=== PATIENT | female | born 1985 | race Caucasian/White ===

== ENCOUNTER 2016-07-01 17:06 | Emergency (ER) | payer BC ==
[2016-07-01 17:10] VITALS: TEMP 98.8; BMI 39.5
[2016-07-01] MEDS ORDERED: SODIUM CHLORIDE 1,000 ML IV STA (17:34)
[2016-07-01] MEDS ORDERED: METOCLOPRAMIDE HCL INJECTION 10 MG/2 ML VIAL IVPB ONE (17:34)
[2016-07-01] MEDS ORDERED: KETOROLAC TROMETHAMINE 30 MG/1 ML VIAL IVPUSH ONE (17:34)
[2016-07-01] MEDS ORDERED: METOCLOPRAMIDE HCL INJECTION 10 MG/2 ML VIAL ONE (17:51)
[2016-07-01] MEDS ORDERED: KETOROLAC TROMETHAMINE 30 MG/1 ML VIAL ONE (17:51)
[2016-07-01 18:02] LABS: BASOPHIL 0.6 % (0-2.0); EOSINOPHIL 1.6 % (0-4.5); MCH 28.9 pg (25.7-33.7); MCHC 33.4 g/dl (32.0-36.0); MEAN CELL VOLUME 86.5 fl (80-96); MEAN PLT VOLUME 8.7 fl (7.5-11.1); NEUTROPHILS 62.7 % (42.8-82.8); PLATELET COUNT 383 K/MM3 (134-434); RDW 13.7 % (11.6-15.6); WHITE BLOOD COUNT 8.9 K/mm3 (4.0-10.0)
--- NOTE | 2016-07-01 18:22 | PDOC ---
[id number] 4d MIGRAINE HEADACHE Time Seen by Provider: 07/01/16 17:33 History Source: Patient Exam Limitations: No Limitations - History of Present Illness Initial Comments: 07/01/16 18:17 30-year-old female presents to the ED with complaints of 3 day right temporal right retro-orbital pressure that has been unrelieved with her migraine medications including Topamax and fioricet. The patient states has been having migraines since [employer] and has been followed by Dr. Dowd for over 15 years. Patient states had to go to another hospital in March of last year secondary to the same but did resolve after receiving IV medication and was sent home with yobanyanju. Patient has no complaints of fever, visual changes, neck stiffness, vomiting, or abdominal pain. Patient denies recent travel, recent stressors, recent change in diet. Timing/Duration: reports: constant Severity: Yes: moderate Associated Symptoms: reports: other Past History - Past Medical History Allergies/Adverse Reactions: Allergies Allergy/AdvReac Type Severity Reaction Status Date / Time amoxicillin trihydrate Allergy DIARRHEA, Verified 07/01/16 17:07 [From Augmentin] VOMITING, HIVES potassium clavulanate Allergy DIARRHEA, Verified 07/01/16 17:07 [From Augmentin] VOMITING, HIVES shellfish derived Allergy FACIAL Verified 07/01/16 17:07 SWELLING Home Medications: Ambulatory Orders Levothyroxine [Synthroid -] 75 mcg PO DAILY 08/19/13 Topiramate [Topamax] 50 mg PO BID 03/09/15 Acetaminophen/Caffeine/Butalb [Fioricet -] 1 tab PO Q4H 07/01/16 Kidney Stones: Yes Thyroid Disease: Yes (HYPO.) Other medical history: migraines - Reproductive History Is Patient Now?: No - Psycho/Social/Smoking Cessation Hx Anxiety: No Suicidal Ideation: No Smoking Status: No Smoking History: Never smoked Have you smoked in the past 12 months: No Number of Cigarettes Smoked Daily: 0 Information on smoking cessation initiated: No Hx Alcohol Use: No Drug/Substance Use Hx: No Substance Use Type: Alcohol Patient Lives Alone: No Lives with/in: spouse/SO Neuro Specific PMHX - Complaint Specific PMHX Migraine: Yes Review of Systems - Review of Systems Able to Perform ROS?: Yes Constitutional: No: Symptoms Reported HEENTM: No: Symptoms Reported Respiratory: No: Symptoms reported Cardiac (ROS): No: Symptoms Reported ABD/GI: Yes: Nausea Musculoskeletal: No: Symptoms Reported Integumentary: No: Symptoms Reported Neurological: Yes: Headache. No: Numbness, Weakness, Dizziness Endocrine: No: Symptoms Reported Hematologic/Lymphatic: No: Symptoms Reported *Physical Exam - Vital Signs Last Vital Signs Temp Pulse Resp BP Pulse Ox 98.8 F 81 18 113/78 100 07/01/16 17:07 07/01/16 17:07 07/01/16 17:07 07/01/16 17:07 07/01/16 17:07 - Physical Exam General Appearance: Yes: Nourished, Appropriately Dressed. No: Apparent Distress HEENT: positive: EOMI, LAURY, TMs Normal, Pharynx Normal. negative: Pale Conjunctivae Neck: positive: Normal Thyroid, Supple. negative: Tender, Decreased range of motion Respiratory/Chest: positive: Lungs Clear, Normal Breath Sounds. negative: Respiratory Distress, Accessory Muscle Use Cardiovascular: positive: Regular Rhythm, Regular Rate. negative: Murmur Integumentary: positive: Normal Color, Warm, Moist Neurologic: positive: Motor Strength 5/5 (ambulatory) ED Treatment Course - LABORATORY CBC & Chemistry Diagram: 07/01/16 17:38 07/01/16 17:55 - Medications Given in the ED: ED Medications Discontinued Medications Generic Name Dose Route Start Last Admin Trade Name Freq PRN Reason Stop Dose Admin Ketorolac Tromethamine 30 mg 07/01/16 17:34 07/01/16 17:58 Toradol Injection - IVPUSH 07/01/16 17:35 30 mg ONCE ONE Administration Metoclopramide HCl 10 mg 07/01/16 17:34 07/01/16 17:58 Reglan Injection - IVPB 07/01/16 17:35 10 mg ONCE ONE Administration Medical Decision Making - Medical Decision Making 07/01/16 18:24 Patient with acute migraine episode for the past 3 days unrelieved with her chronic migraine medication. Patient denies different presentation, severity, or duration. Patient had no neural focal deficits with no acute findings. Patient ordered for IV fluids, labs, urine urine , Reglan, Benadryl, and Toradol. *DC/Admit/Observation/Transfer Diagnosis at time of Disposition: Migraine headache - Discharge Dispostion Disposition: HOME Condition at time of disposition: Stable - Referrals Referrals: Maya Kay [Primary Care Provider] - - Patient Instructions Printed Discharge Instructions: DI for Migraine Additional Instructions: Your Discharge Instructions: You must call primary care physician within 24 hours to arrange follow-up. Return to the Emergency Department with any new, persistent or worsening symptoms, for fever, chills, SOB, dizziness or any other concerning changes that may occur.
[2016-07-01 18:45] LABS: ALK PHOS 99 U/L (45-117); ANION GAP 9 (8-16); BILIRUBIN,TOTAL 0.3 mg/dL (0.2-1.0); CALCIUM 8.7 mg/dL (8.5-10.1); CO2 25 mmol/L (21-32); CREATININE 0.8 mg/dL (0.55-1.02); GLUCOSE,RANDOM 101 mg/dL (74-106); SGOT/AST 19 U/L (15-37); SGPT/ALT 44 U/L (12-78); TOT PROT 7.7 g/dl (6.4-8.2)
[2016-07-01 18:55] LABS: URINE APPEARANCE CLOUDY; URINE BILIRUBIN NEGATIVE (NEGATIVE); URINE BLOOD NEGATIVE (NEGATIVE); URINE COLOR YELLOW; URINE GLUCOSE (UA) NEGATIVE (NEGATIVE); URINE KETONE NEGATIVE (NEGATIVE); URINE LEUK ESTERASE NEGATIVE (NEGATIVE); URINE NITRITE NEGATIVE (NEGATIVE); URINE PROTEIN NEGATIVE (NEGATIVE); URINE UROBILINOGEN NEGATIVE E.U./dl (0.2-1.0)
--- NOTE | 2016-07-01 19:33 | PDOC ---
[id number] 100 07/01/16 17:07 07/01/16 17:07 07/01/16 17:07 07/01/16 17:07 07/01/16 17:07 <Anais Ponce - Last Filed: 07/01/16 20:28> - Vital Signs Last Vital Signs Temp Pulse Resp BP Pulse Ox 98.8 F 73 20 110/52 97 07/01/16 17:07 07/01/16 20:36 07/01/16 20:36 07/01/16 20:36 07/01/16 20:36 <ThierryBruno vanessa - Last Filed: 07/02/16 09:03> ED Treatment Course - LABORATORY CBC & Chemistry Diagram: 07/01/16 17:38 07/01/16 17:55 - ADDITIONAL ORDERS Additional order review: Laboratory Results 07/01/16 17:38 Urine Color Yellow Urine Appearance Cloudy Urine pH 7.0 Ur Specific [place] 1.019 Urine Protein Negative Urine Glucose (UA) Negative Urine Ketones Negative Urine Blood Negative Urine Nitrite Negative Urine Bilirubin Negative Urine Urobilinogen Negative Ur Leukocyte Esterase Negative Urine HCG, Qual Negative 07/01/16 17:38 RBC 5.03 MCV 86.5 MCHC 33.4 RDW 13.7 MPV 8.7 Neutrophils % 62.7 Lymphocytes % 28.0 Monocytes % 7.1 Eosinophils % 1.6 Basophils % 0.6 - Medications Given in the ED: ED Medications Discontinued Medications Generic Name Dose Route Start Last Admin Trade Name Jose PRN Reason Stop Dose Admin Diphenhydramine HCl 50 mg 07/01/16 18:23 07/01/16 18:33 Benadryl Injection - IVPB 07/01/16 18:24 50 mg ONCE ONE Administration Sodium Chloride 1,000 mls @ 1,000 mls/hr 07/01/16 17:34 07/01/16 17:58 Normal Saline - IV 07/01/16 18:33 1,000 mls/hr ASDIR STA Administration Ketorolac Tromethamine 30 mg 07/01/16 17:34 07/01/16 17:58 Toradol Injection - IVPUSH 07/01/16 17:35 30 mg ONCE ONE Administration Metoclopramide HCl 10 mg 07/01/16 17:34 07/01/16 17:58 Reglan Injection - IVPB 07/01/16 17:35 10 mg ONCE ONE Administration <RosarioAnais - Last Filed: 07/01/16 20:28> - LABORATORY CBC & Chemistry Diagram: 07/01/16 17:38 07/01/16 17:55 - ADDITIONAL ORDERS Additional order review: 07/01/16 17:38 RBC 5.03 MCV 86.5 MCHC 33.4 RDW 13.7 MPV 8.7 Neutrophils % 62.7 Lymphocytes % 28.0 Monocytes % 7.1 Eosinophils % 1.6 Basophils % 0.6 - Medications Given in the ED: ED Medications Discontinued Medications Generic Name Dose Route Start Last Admin Trade Name Freq PRN Reason Stop Dose Admin Diphenhydramine HCl 50 mg 07/01/16 18:23 07/01/16 18:33 Benadryl Injection - IVPB 07/01/16 18:24 50 mg ONCE ONE Administration Sodium Chloride 1,000 mls @ 1,000 mls/hr 07/01/16 17:34 07/01/16 17:58 Normal Saline - IV 07/01/16 18:33 1,000 mls/hr ASDIR STA Administration Ketorolac Tromethamine 30 mg 07/01/16 17:34 07/01/16 17:58 Toradol Injection - IVPUSH 07/01/16 17:35 30 mg ONCE ONE Administration Metoclopramide HCl 10 mg 07/01/16 17:34 07/01/16 17:58 Reglan Injection - IVPB 07/01/16 17:35 10 mg ONCE ONE Administration <Bruno Guadarrama - Last Filed: 07/02/16 09:03> Medical Decision Making - Medical Decision Making 07/01/16 19:28 Patient was endorsed to me by EVON Barr pending labs and disposition. 07/01/16 19:33 There are no acute findings on the CBC and the UA, chemistry pending 07/01/16 20:15 Patient is feeling better now rates the pain at 1/10. There are no neurological deficits. Chemistries normal I discussed the physical exam findings, ancillary test results and final diagnoses with the patient. I answered all of the patient's questions. The patient was satisfied with the care received and felt comfortable with the discharge plan and treatment plan. The Patient agrees to follow up with the primary care physician within 24-72 hours. <Anais Ponce - Last Filed: 07/01/16 20:28> - Medical Decision Making 07/02/16 09:02 The patient was seen and evaluated in conjunction with SYED Beavers and EVON Kern under my direct supervision, ancillary studies were reviewed. I agree with the plan as outlined by SYED Beavers and EVON Kern. <Bruno Guadarrama - Last Filed: 07/02/16 09:03> *DC/Admit/Observation/Transfer <Anais Ponce - Last Filed: 07/01/16 20:28> <Bruno Guadarrama - Last Filed: 07/02/16 09:03> Diagnosis at time of Disposition: Migraine headache - Discharge Dispostion Disposition: HOME Condition at time of disposition: Stable - Referrals Referrals: Maya Kay [Primary Care Provider] - - Patient Instructions Printed Discharge Instructions: DI for Migraine Additional Instructions: Your Discharge Instructions: You must call primary care physician within 24 hours to arrange follow-up. Return to the Emergency Department with any new, persistent or worsening symptoms, for fever, chills, SOB, dizziness or any other concerning changes that may occur.
[2016-07-01 20:37] VITALS: BP 110/52; PULSE 73
== END 2016-07-01 20:40 | disposition home or self-care (01) ==
LOC: JER 17:06
PROC: 3E033GC Introduction of Other Therapeutic Substance into Peripheral Vein, Percutaneous Approach (ICD-10-PCS; principal; 2016-07-01)
PROC: 3E0333Z Introduction of Anti-inflammatory into Peripheral Vein, Percutaneous Approach (ICD-10-PCS; 2016-07-01)
PROC: 3E0337Z Introduction of Electrolytic and Water Balance Substance into Peripheral Vein, Percutaneous Approach (ICD-10-PCS; 2016-07-01)
DX: G43.909 Migraine, unspecified, not intractable, without status migrainosus (principal); E03.9 Hypothyroidism, unspecified
CPT/HCPCS: 36415; 80053; 81003; 84703; 85025; 99283-25

== ENCOUNTER 2016-12-08 05:38 | Day surgery (SDC) | payer BC ==
[2016-12-05 09:27] VITALS: BMI 38.9
[2016-12-08] MEDS ORDERED: PROPOFOL 20 ML ONE ×8 (07:32→08:49)
[2016-12-08] MEDS ORDERED: ePHEDrine SULFATE 50 MG/1 ML AMPULE ONE (07:32)
[2016-12-08] MEDS ORDERED: MIDAZOLAM HCL 2 MG/2 ML SINGLE DOSE VIAL ONE (07:32)
[2016-12-08] MEDS ORDERED: SUCCINYLCHOLINE CHLORIDE 200 MG/10 ML VIAL ONE ×2 (07:32→08:49)
[2016-12-08] MEDS ORDERED: IBUPROFEN 800 MG/8 ML IJ IVPB PRN (08:14)
[2016-12-08] MEDS ORDERED: ACETAMINOPHEN 325 MG TABLET (FP) PO PRN (08:14)
--- NOTE | 2016-12-08 08:14 | HP ---
History & Physical Update - History History: No Change - Physical Physical: No Change - Assessment Assessment: No Change - Plan Plan: No Change (cervical dysplasia - for LEEP cone biopsy)
[2016-12-08] MEDS ORDERED: LACTATED RINGERS SOLUTION 1,000 ML IV SCH (08:15)
[2016-12-08] MEDS ORDERED: DESFLURANE GAS 240 ML BOTTLE IH ONE (08:32)
--- NOTE | 2016-12-08 09:30 | OP ---
Operative Note - Note: Operative Date: 12/08/16 Pre-Operative Diagnosis: cervical dysplasia Operation: LEEP cone biopsy Findings: normal female anatomy Post-Operative Diagnosis: Same as Pre-op Surgeon: Dalila Rogers Anesthesiologist/SENIOR NATIONAL ACCOUNT MANAGER: Elvin Bajwa Anesthesia: General Specimens Removed: cervical biopsy Estimated Blood Loss (mls): 5 Operative Report Dictated: Yes
[2016-12-08] MEDS ORDERED: ONDANSETRON 4 MG/2 ML VIAL IVPUSH PRN (09:35)
[2016-12-08] MEDS ORDERED: oxyCODONE HCL 5 MG TABLET PO PRN ×2 (09:35)
[2016-12-08 10:12] VITALS: TEMP 97.9
[2016-12-08] MEDS ORDERED: oxyCODONE HCL 5 MG TABLET PO ONE (11:05)
[2016-12-08] MEDS ORDERED: oxyCODONE HCL 5 MG TABLET ONE (11:07)
[2016-12-08 11:20] VITALS: BP 124/70; PULSE 91
--- NOTE | 2016-12-09 12:56 | PATH ---
Surgical Pathology Report Patient Name: MICHAEL GAMING [facility]. Rec. #: [id number] /Age/Gender: 1985 (Age: 31) / F Account: [id number] Location: [facility] Taken: 12/08/2016 Received: 12/08/2016 Reported: 12/09/2016 Physicians: Dalila Rogers M.D. Specimen(s) Received CERVICAL CONE BIOPSY Clinical History Cervical dysplasia Final Diagnosis CERVIX, LEEP CONE BIOPSY: CERVICAL SQUAMOUS AND ENDOCERVICAL MUCOSA WITH DETACHED FRAGMENTS OF SQUAMOUS EPITHELIUM WITH LOW GRADE SQUAMOUS INTRAEPITHELIAL LESION (CERVICAL INTRAEPITHELIAL NEOPLASIA 1/SAVANNAH 1) WITH CAUTERY ARTIFACT. SURGICAL RESECTION MARGINS: ATYPIA NEGATIVE FOR DYSPLASIA; HOWEVER, EVALUATION IS LIMITED DUE TO DETACHMENT OF DYSPLASTIC EPITHELIUM. TRANSFORMATION ZONE: FOCALLY IDENTIFIED. Electronically Signed Curry Erwin M.D. Gross Description Received in formalin labeled "cervical biopsy" are 4 robbins-pink, irregular, unoriented portions of soft tissue ranging from 1.2 x 0.8 x 0.4 cm to 2.5 x 1.2 x 0.4 cm. Some of the portions are partially surfaced by a robbins-pink mucosa. The specimens are inked blue, serially sectioned and entirely submitted in 4 cassettes. /12/08/201612/08/2016
--- NOTE | 2016-12-10 09:47 | OP ---
DATE OF OPERATION: 12/08/2016 PREOPERATIVE DIAGNOSIS: Persistent cervical dysplasia. POSTOPERATIVE DIAGNOSIS: Persistent cervical dysplasia. PROCEDURE: Loop electrosurgical excision procedure (LEEP) cone biopsy. SURGEON: Dalila Wright DO CHILDCARE ADMINISTRATOR: None. ANESTHESIA: General by Elvin Bajwa MD and maintained by Darinel Chamorro CRNA. SPECIMEN REMOVED: Included cervical biopsy. COMPLICATIONS: None. ESTIMATED BLOOD LOSS: 5 mL DISPOSITION: Stable to PACU. COUNTS: Sponge, needle, and instrument count reported to be correct. BRIEF HISTORY AND DESCRIPTION OF PROCEDURE: Patient is a 31-year-old female who had been seen in the office with an abnormal Pap smear and had several colposcopic biopsies which showed cervical dysplasia. The patient was counseled on her options, and she agreed to undergo a LEEP cone biopsy procedure. Consents were signed in the office. The patient was then admitted to [facility] on December 08, 2016. Consents were reconfirmed. The patient was taken back to the operating room. She was given general anesthesia by Dr. Bajwa. Next, a speculum was placed inside the vagina, and the cervix was easily visualized. Using a large LEEP loop, a cone biopsy was removed in several passes in an anterior-posterior fashion. The specimen was sent to Pathology for permanent evaluation. The surgical bed was cauterized with the roller ball cautery. Excellent hemostasis was achieved. All the instruments were removed from the vagina. The patient was awoken from anesthesia, recovering in stable condition in the PACU after the procedure. DALILA WRIGHT DO /[id number]
== END 2016-12-08 11:46 | disposition home or self-care (01) ==
LOC: JASU-SURG 05:38
PROVIDERS: ATTEND Obstetrics & Gynecology
PROC: 0UBC7ZX Excision of Cervix, Via Natural or Artificial Opening, Diagnostic (ICD-10-PCS; principal; 2016-12-08 08:00)
DX: N87.0 Mild cervical dysplasia (principal)
CPT/HCPCS: 88307-TC; 94760

== ENCOUNTER 2021-01-27 13:06 | Emergency (ER) | payer BC ==
[2021-01-27 13:14] VITALS: TEMP 99.2; BMI 40.3
[2021-01-27 13:50] LABS: BASO % 0.3 % (0-2.0); EOS % 0.5 % (0-4.5); HEMATOCRIT 44.4 % (32.4-45.2); HEMOGLOBIN 15.4 GM/dL (10.7-15.3); MCH 31.1 pg (25.7-33.7); MCHC 34.7 g/dl (32.0-36.0); MEAN CELL VOLUME 89.9 fl (80-96); MEAN PLT VOLUME 8.9 fl (7.5-11.1); MONO % 9.4 % (3.8-10.2); NEUT % 73.8 % (42.8-82.8); PLATELET COUNT 254 10^3/uL (134-434); RBC 4.94 M/mm3 (3.60-5.2); RDW 13.2 % (11.6-15.6); WHITE BLOOD COUNT 5.8 K/mm3 (4.0-10.0)
[2021-01-27] MEDS ORDERED: CASIRIVIMAB/IMDEVIMAB 10 ML in SODIUM CHLORIDE 100 ML IVPB ONE (14:17)
[2021-01-27 14:18] LABS: CALCIUM 8.7 mg/dL (8.5-10.1)
[2021-01-27 14:19] LABS: ALBUMIN 4.1 g/dl (3.4-5.0); BLOOD UREA NITROGEN 10.2 mg/dL (7-18)
[2021-01-27 14:22] LABS: CREATININE 0.8 mg/dL (0.55-1.3)
[2021-01-27 14:24] LABS: BILIRUBIN,TOTAL 0.4 mg/dL (0.2-1); TOT PROT 8.2 g/dl (6.4-8.2)
[2021-01-27 16:38] VITALS: BP 110/80; PULSE 72
== END 2021-01-27 16:38 | disposition home or self-care (01) ==
LOC: JER 13:06 → JCOVINFU 13:06 → JER 16:38
PROC: 3E033GC Introduction of Other Therapeutic Substance into Peripheral Vein, Percutaneous Approach (ICD-10-PCS; principal; 2021-01-27)
DX: U07.1 COVID-19 (principal)
CPT/HCPCS: 36415; 80053; 85025; 99284-25; M0240; Q0240